=== PATIENT | male | born 1965 | race Caucasian/White ===

== ENCOUNTER 2019-07-03 12:42 | Emergency (ER) | payer BC, OTHER ==
[2019-07-03] MEDS ORDERED: LIDOCAINE 1% MPF 5 ML VIAL ONE (13:37)
--- NOTE | 2019-07-03 14:51 | RAD REPORT ---
EXAM DESCRIPTION: RAD - Hand Right 2 View - 07/03/2019 1:58 pm CLINICAL HISTORY: Hand pain, laceration, blunt force trauma COMPARISON: None. FINDINGS: PA and lateral views of the right hand obtained and show no gross fracture deformity. No d islocation or periosteal reaction. Lateral view shows a very thin crescent-shaped bony density near t he base of a metacarpal. Provided history indicates trauma was to the anterior aspect of the hand and wrist. Acute bony injury therefore is not suspected. No foreign body in the soft tissues. IMPRESSION: No foreign body. As detailed above, an acute process is not suspected.
--- NOTE | 2019-07-03 14:52 | ER ---
Nurse's Notes [facility] Name: Michael White Age: 53 yrs Sex: Male : 1965 Arrival Date: 07/03/2019 Time: 12:43 Bed 20 Private MD: Quentin Bueno V Diagnosis: Superficial right hand laceration Presentation: 07/03 13:17 Presenting complaint: Patient states: "A piece of wood kicked back on my table saw and aj1 got me in the hand" Skin tear to right hand, not currently bleeding. Transition of care: patient was not received from another setting of care. Onset of symptoms was July 03, 2019. Risk Assessment: Do you want to hurt yourself or someone else? Patient reports no desire to harm self or others. Initial Sepsis Screen: Does the patient meet any 2 criteria? No. Patient's initial sepsis screen is negative. Does the patient have a suspected source of infection? No. Patient's initial sepsis screen is negative. Care prior to arrival: None. 13:17 Method Of Arrival: Ambulatory aj 13:17 Acuity: MADELINE 4 aj1 Triage Assessment: 13:23 General: Appears in no apparent distress. comfortable, Behavior is calm, cooperative, aj1 appropriate for age. Pain: Complains of pain in right hand Pain currently is 2 out of 10 on a pain scale. Neuro: Level of Consciousness is awake, alert, obeys commands. Cardiovascular: Patient's skin is warm and dry. Respiratory: Airway is patent Respiratory effort is even, unlabored, Respiratory pattern is regular, symmetrical. Musculoskeletal: Range of motion: intact in all extremities. Historical: - Allergies: 13:23 No Known Allergies; aj1 - Home Meds: 13:23 simvastatin 40 mg oral tab once daily [Active]; ramipril 2.5 mg Oral cap 1 cap once aj1 daily [Active]; levothyroxine 50 mcg tab 1 tab once daily [Active]; Synjardy 12.5-1,000 mg oral tab 1 tab 2 times per day [Active]; Januvia 100 mg oral tab 1 tab once daily [Active]; aspirin 81 mg Oral chew 1 tab once daily [Active]; - PMHx: 13:23 Diabetes - NIDDM; aj1 - Immunization history:: Flu vaccine is up to date. - Social history:: Smoking status: Patient/guardian denies using tobacco. - Ebola Screening: : Patient denies travel to an Ebola-affected area in the 21 days before illness onset. - Family history:: not pertinent. - Hospitalizations: : No recent hospitalization is reported. Screenin:17 Abuse screen: Denies threats or abuse. Denies injuries from another. Nutritional ss screening: No deficits noted. Tuberculosis screening: Never had TB. Fall Risk None identified. Assessment: 14:17 General: Appears in no apparent distress. comfortable, Behavior is calm, cooperative, ss appropriate for age. Pain: Complains of pain in heel of right hand Pain currently is 2 out of 10 on a pain scale. Quality of pain is described as tender, Is continuous. Neuro: Level of Consciousness is awake, alert, obeys commands, Oriented to person, place, time, situation. Derm: Skin is healthy with good turgor, Skin is pink, warm \\T\\ dry. normal. Injury Description: Avulsion sustained to heel of right hand. 14:56 Reassessment: Patient appears in no apparent distress at this time. Patient and/or ss family updated on plan of care and expected duration. Pain level reassessed. Vital Signs: 13:23 BP 121 / 79; Pulse 54; Resp 18; Temp 98.3; Pulse Ox 99% on R/A; Weight 68.04 kg (R); aj1 Height 5 ft. 6 in. (167.64 cm) (R); Pain 2/10; 13:23 Body Mass Index 24.21 (68.04 kg, 167.64 cm) aj1 ED Course: 12:43 Patient arrived in ED. as 12:43 Quentin Bueno MD is Private Physician. as 13:20 Triage completed. aj1 13:23 Arm band placed on Patient placed in an exam room. aj1 13:26 Roly Licea MD is Attending Physician. rn 13:34 Trini Shine RN is Primary Nurse. ss 13:56 XRAY Hand RIGHT 2 View In Process Unspecified. EDMS 14:17 Patient has correct armband on for positive identification. Bed in low position. Call ss light in reach. 14:17 Assist provider with laceration repair on heel of right hand that was between 2.6 to ss 7.5 cm using sutures. Set up tray. Performed by Roly Licea MD Dressed with 4X4s, Kerlix, Patient tolerated well. Patient did not have IV access during this emergency room visit. 14:32 Irrigation of laceration on heel of right hand irrigated with normal saline Hibiclens ss solution Patient tolerated well. Wound care: to laceration. Administered Medications: 14:11 Drug: Lidocaine (1 %) 1 vials {Note: administered by Dr. Licea.} Volume: 5 ml; Route: ss Infiltration; Outcome: 14:51 Discharge ordered by . rn 14:56 Discharged to home ambulatory, with family. ss 14:56 Condition: good 14:56 Discharge instructions given to patient, family, Instructed on discharge instructions, follow up and referral plans. wound care, Demonstrated understanding of instructions, follow-up care, medications, Prescriptions given X 1. 14:57 Patient left the ED. ss Signatures: Dispatcher [employer] EDOlivia Crabtree, RN RN aj1 Tonya Hand Roman, MD MD rn Smirch, Shelby, RN RN
--- NOTE | 2019-07-03 14:52 | EDPHYS ---
Physician Documentation [facility] Name: Michael White Age: 53 yrs Sex: Male : 1965 Arrival Date: 07/03/2019 Time: 12:43 Bed 20 Private MD: Quentin Bueno V ED Physician Roly Licea HPI: 07/03 14:23 This 53 yrs old Male presents to ER via Ambulatory with complaints of Hand rn Injury - laceration. 14:23 The patient or guardian reports a laceration. The complaints affect the right hand rn diffusely. Onset: The symptoms/episode began/occurred just prior to arrival. Modifying factors: The symptoms are alleviated by nothing, the symptoms are aggravated by nothing. Severity of symptoms: At their worst the symptoms were mild, in the emergency department the symptoms are unchanged. The patient has not experienced similar symptoms in the past. Right handed, struck by piece of wood that kicked back in table saw, + avulsion/laceration palm, no active bleeding.. Historical: - Allergies: 13:23 No Known Allergies; aj1 - Home Meds: 13:23 simvastatin 40 mg oral tab once daily [Active]; ramipril 2.5 mg Oral cap 1 cap once aj1 daily [Active]; levothyroxine 50 mcg tab 1 tab once daily [Active]; Synjardy 12.5-1,000 mg oral tab 1 tab 2 times per day [Active]; Januvia 100 mg oral tab 1 tab once daily [Active]; aspirin 81 mg Oral chew 1 tab once daily [Active]; - PMHx: 13:23 Diabetes - NIDDM; aj1 - Immunization history:: Flu vaccine is up to date. - Social history:: Smoking status: Patient/guardian denies using tobacco. - Ebola Screening: : Patient denies travel to an Ebola-affected area in the 21 days before illness onset. - Family history:: not pertinent. - Hospitalizations: : No recent hospitalization is reported. ROS: 14:23 Constitutional: Negative for fever, chills, and weight loss, MS/Extremity: + laceration rn to right palm Neuro: Negative for weakness, numbness, tingling Exam: 14:23 Constitutional: This is a well developed, well nourished patient who is awake, alert, rn and in no acute distress. MS/ Extremity: Pulses equal, no cyanosis. Neurovascular intact. Full, normal range of motion. Equal circumference. + 3 cm u-shaped avulsion/laceration inferior right palm, no active bleeding, no foreign bodies, angular and involves only fat and skin Vital Signs: 13:23 BP 121 / 79; Pulse 54; Resp 18; Temp 98.3; Pulse Ox 99% on R/A; Weight 68.04 kg (R); aj1 Height 5 ft. 6 in. (167.64 cm) (R); Pain 2/10; 13:23 Body Mass Index 24.21 (68.04 kg, 167.64 cm) aj1 Laceration: 14:47 Wound Repair of 3cm ( 1.2in ) subcutaneous laceration to palm of right hand. Distal rn neuro/vascular/tendon intact. Anesthesia: Wound infiltrated with 3 mls of 1% lidocaine. Wound prep: Extensive cleansing by nurse, Wound irrigation by nurse, Wound explored extensively. Skin closed with 11 5-0 Prolene using interrupted sutures and sterile technique. Dressed with Neosporin, 4x4's, Kerlix. Patient tolerated well. MDM: 13:26 Patient medically screened. rn 14:47 Differential diagnosis: laceration/avulsion. Data reviewed: vital signs, nurses notes, rn radiologic studies, plain films, and as a result, I will discharge patient. Counseling: I had a detailed discussion with the patient and/or guardian regarding: the historical points, exam findings, and any diagnostic results supporting the discharge/admit diagnosis, radiology results, the need for outpatient follow up, to return to the emergency department if symptoms worsen or persist or if there are any questions or concerns that arise at home. Response to treatment: the patient's symptoms have markedly improved after treatment, and as a result, I will discharge patient. Special discussion: I discussed with the patient/guardian in detail that at this point there is no indication for admission to the hospital. It is understood, however, that if the symptoms persist or worsen the patient needs to return immediately for re-evaluation. ED course: Wound cleaned and sutured, tolerated well, tetanus UTD, no fracture on xray. . 07/03 13:32 Order name: XRAY Hand RIGHT 2 View rn 07/03 13:32 Order name: Suture Tray at Bedside; Complete Time: 14:11 rn 07/03 13:32 Order name: Wound Care; Complete Time: 14:34 rn Administered Medications: 14:11 Drug: Lidocaine (1 %) 1 vials {Note: administered by Dr. Licea.} Volume: 5 ml; Route: ss Infiltration; Disposition: 07/03/19 14:51 Discharged to Home. Impression: Superficial right hand laceration. - Condition is Stable. - Discharge Instructions: Laceration Care, Adult, Sutured Wound Care. - Prescriptions for Augmentin 875- 125 mg Oral Tablet - take 1 tablet by ORAL route every 12 hours for 10 days; 20 tablet. - Medication Reconciliation Form, Thank You Letter, Antibiotic Education, Prescription Opioid Use form. - Follow up: Emergency Department; When: 10 - 14 days; Reason: Staple/Suture removal. - Problem is new. - Symptoms have improved. Signatures: Dispatcher [employer] EDMS Olivia Bajwa RN RN aj1 Roly Licea MD MD rn Smirch, Shelby, RN RN ss Corrections: (The following items were deleted from the chart) 14:57 14:51 07/03/2019 14:51 Discharged to Home. Impression: Superficial right hand ss laceration. Condition is Stable. Forms are Medication Reconciliation Form, Thank You Letter, Antibiotic Education, Prescription Opioid Use. Follow up: Emergency Department; When: 10 - 14 days; Reason: Staple/Suture removal. Problem is new. Symptoms have improved. rn
[2019-07-03 15:02] VITALS: BP 121/79; TEMP 98.3; O2SAT 99
== END 2019-07-03 14:57 | disposition home or self-care (01) ==
LOC: ER 12:42
PROC: 0JQJ0ZZ Repair Right Hand Subcutaneous Tissue and Fascia, Open Approach (ICD-10-PCS; principal; 2019-07-03)
DX: S61.411A Laceration without foreign body of right hand, initial encounter (principal); W45.8XXA Other foreign body or object entering through skin, initial encounter; Y93.89 Activity, other specified; Y92.89 Other specified places as the place of occurrence of the external cause; E11.9 Type 2 diabetes mellitus without complications; Z79.82 Long term (current) use of aspirin
CPT/HCPCS: 99284

== ENCOUNTER 2019-07-16 06:41 | Emergency (ER) | payer BC ==
--- NOTE | 2019-07-16 06:59 | EDPHYS ---
Physician Documentation [facility] Name: Michael White Age: 53 yrs Sex: Male : 1965 Arrival Date: 07/16/2019 Time: 06:42 Bed Waiting Private MD: ED Physician Florence Herrmann HPI: 07/16 07:00 This 53 yrs old Male presents to ER via Ambulatory with complaints of Suture snw Removal. 07:00 The patient has sutures on the heel of right hand. Previous treatment: The patient was snw initially treated 13 day(s) ago, Treatment type: The patient's original treatment included sutures, Outpatient prescription(s): The patient was given prescription(s) for abx x 10 days, completed. Sutures/dyana progress: The patient has no c/o's. The wound is well-healing with no redness, swelling, discharge, or dehiscence reported. The patient has not experienced similar symptoms in the past. It is unknown whether or not the patient has recently seen a physician. ROS: 06:58 Constitutional: Negative for fever, chills, and weight loss, Eyes: Negative for injury, snw pain, redness, and discharge, ENT: Negative for injury, pain, and discharge, Neck: Negative for injury, pain, and swelling, Cardiovascular: Negative for chest pain, palpitations, and edema, Respiratory: Negative for shortness of breath, cough, wheezing, and pleuritic chest pain, Abdomen/GI: Negative for abdominal pain, nausea, vomiting, diarrhea, and constipation, Back: Negative for injury and pain, : Negative for injury, bleeding, discharge, and swelling, MS/Extremity: Negative for injury and deformity, Neuro: Negative for headache, weakness, numbness, tingling, and seizure, Psych: Negative for depression, anxiety, suicide ideation, homicidal ideation, and hallucinations. 06:58 Skin: Positive for laceration(s), suture removal. Exam: 06:58 Constitutional: This is a well developed, well nourished patient who is awake, alert, snw and in no acute distress. Head/Face: Normocephalic, atraumatic. Eyes: Pupils equal round and reactive to light, extra-ocular motions intact. Lids and lashes normal. Conjunctiva and sclera are non-icteric and not injected. Cornea within normal limits. Periorbital areas with no swelling, redness, or edema. ENT: Nares patent. No nasal discharge, no septal abnormalities noted. Tympanic membranes are normal and external auditory canals are clear. Oropharynx with no redness, swelling, or masses, exudates, or evidence of obstruction, uvula midline. Mucous membranes moist. Neck: Trachea midline, no thyromegaly or masses palpated, and no cervical lymphadenopathy. Supple, full range of motion without nuchal rigidity, or vertebral point tenderness. No Meningismus. Chest/axilla: Normal chest wall appearance and motion. Nontender with no deformity. No lesions are appreciated. Cardiovascular: Regular rate and rhythm with a normal S1 and S2. No gallops, murmurs, or rubs. Normal PMI, no JVD. No pulse deficits. Respiratory: Lungs have equal breath sounds bilaterally, clear to auscultation and percussion. No rales, rhonchi or wheezes noted. No increased work of breathing, no retractions or nasal flaring. Abdomen/GI: Soft, non-tender, with normal bowel sounds. No distension or tympany. No guarding or rebound. No evidence of tenderness throughout. Back: No spinal tenderness. No costovertebral tenderness. Full range of motion. MS/ Extremity: Pulses equal, no cyanosis. Neurovascular intact. Full, normal range of motion. Neuro: Awake and alert, GCS 15, oriented to person, place, time, and situation. Cranial nerves II-XII grossly intact. Motor strength 5/5 in all extremities. Sensory grossly intact. Cerebellar exam normal. Normal gait. Psych: Awake, alert, with orientation to person, place and time. Behavior, mood, and affect are within normal limits. 06:58 Skin: Appearance: normal except for affected area, injury, laceration(s), 11 sutures removed from palm of right hand 13 days post placement, wound edges well approximated. No erythema, dc. Vital Signs: 06:59 BP 130 / 86; Pulse 59; Resp 16 S; Temp 97.5(O); Pulse Ox 100% on R/A; bb MDM: 06:58 Patient medically screened. snw 07:02 Data reviewed: vital signs, nurses notes. Data interpreted: Pulse oximetry: is not snw applicable for this patient encounter. Counseling: I had a detailed discussion with the patient and/or guardian regarding: the historical points, exam findings, and any diagnostic results supporting the discharge/admit diagnosis, the need for outpatient follow up, to return to the emergency department if symptoms worsen or persist or if there are any questions or concerns that arise at home. Special discussion: I have referred the patient to see his PCP for further evaluation of high blood pressure. Based on the history and exam findings, there is no indication for further emergent testing or inpatient evaluation. I discussed with the patient/guardian the need to see the primary care provider for further evaluation of the symptoms. Administered Medications: No medications were administered Disposition: 07/17 04:33 Co-signature as Attending Physician, Florence Herrmann MD. ma2 Disposition: 07/16/19 06:58 Discharged to Home. Impression: Encounter for removal of sutures. - Condition is Stable. - Discharge Instructions: Suture Removal, Care After. - Medication Reconciliation Form, Thank You Letter, Antibiotic Education, Prescription Opioid Use form. - Follow up: Emergency Department; When: As needed; Reason: Worsening of condition. Follow up: Private Physician; When: As needed; Reason: Recheck today's complaints, Continuance of care, Re-evaluation by your physician. Signatures: Shira Lancaster, ASSISTANT CLINICAL NURSE MANAGER-C ASSISTANT CLINICAL NURSE MANAGER-Csnw Jessica Pacheco RN RN bb Alzahri, Mohammad, MD MD ma2 Corrections: (The following items were deleted from the chart) 07/16 07:00 06:58 07/16/2019 06:58 Discharged to Home. Impression: Encounter for removal of bb sutures. Condition is Stable. Forms are Medication Reconciliation Form, Thank You Letter, Antibiotic Education, Prescription Opioid Use. Follow up: Emergency Department; When: As needed; Reason: Worsening of condition. Follow up: Private Physician; When: As needed; Reason: Recheck today's complaints, Continuance of care, Re-evaluation by your physician. snw
--- NOTE | 2019-07-16 07:00 | ER ---
Nurse's Notes [facility] Name: Michael White Age: 53 yrs Sex: Male : 1965 Arrival Date: 07/16/2019 Time: 06:42 Bed Waiting [facility] MD: Diagnosis: Encounter for removal of sutures Presentation: 07/16 06:57 Presenting complaint: Patient states: here for suture removal from right hand. bb Transition of care: patient was not received from another setting of care. Onset of symptoms was July 16, 2019. Risk Assessment: Do you want to hurt yourself or someone else? Patient reports no desire to harm self or others. Initial Sepsis Screen: Does the patient meet any 2 criteria? No. Patient's initial sepsis screen is negative. Does the patient have a suspected source of infection? No. Patient's initial sepsis screen is negative. Note Shira Lancaster TRANSPORT CONDUCTOR in triage for suture removal. Pt states this is day 13 or 14 and he has completed his antibiotics. Care prior to arrival: None. 06:57 Method Of Arrival: Ambulatory bb 06:57 Acuity: MADELINE 5 bb Vital Signs: 06:59 BP 130 / 86; Pulse 59; Resp 16 S; Temp 97.5(O); Pulse Ox 100% on R/A; bb ED Course: 06:42 Patient arrived in ED. ds1 06:57 Shira Lancaster FNP-C is PHCP. snw 06:57 Florence Herrmann MD is Attending Physician. snw 06:58 Triage completed. bb 06:59 Arm band placed on Patient pt treated and discharged from triage. bb Administered Medications: No medications were administered Outcome: 06:58 Discharge ordered by . snw 07:00 Patient left the ED. bb Signatures: Shira Lancaster FNP-C PUNCHBOARD INSERTER-Rhina Vivar ds1 Jessica Pacheco, RN RN bb
[2019-07-16 07:04] VITALS: BP 130/86; TEMP 97.5; O2SAT 100
== END 2019-07-16 07:00 | disposition home or self-care (01) ==
LOC: ER 06:41
DX: Z48.02 Encounter for removal of sutures (principal)
CPT/HCPCS: 99281